=== PATIENT | male | born 1985 | race African-American/Black ===

== ENCOUNTER 2016-10-09 14:28 | Observation (INO) | payer SELFPAY ==
[~2016-10-09] VITALS: Ht 175.3 cm; Wt 92.0 kg
[2016-10-09 14:30] VITALS: BP 137/76; PULSE 68; RESP 16; TEMP 97.8; O2SAT 98
[2016-10-09] MEDS ORDERED: SODIUM CHLORIDE 0.9% FLUSH 10 ML FLUSH IV FLUSH PRN (17:15)
[2016-10-09] MEDS ORDERED: ONDANSETRON HCL 4 MG/2 ML VIAL IV ONE (17:30)
[2016-10-09] MEDS ORDERED: SODIUM CHLOR 0.9% 1000 ML INJ 1,000 ML IV ONE (17:30)
[2016-10-09 17:47] LABS: AUTOMATED NEUTROPHIL # 19.8 TH/MM3 (1.8-7.7); BASOPHIL # 0.1 TH/MM3 (0-0.2); BASOPHIL % 0.3 % (0.0-2.0); EOSINOPHIL % 0.1 % (0.0-4.0); HEMATOCRIT 46.2 % (39.0-51.0); HEMO FLAGS DIFF FINAL; LYMPH % 4.6 % (9.0-44.0); MEAN CORPUSCULAR HEMOGLOBIN 29.8 PG (27.0-34.0); MEAN CORPUSCULAR HGB CONC 34.7 % (32.0-36.0); MONO % 3.6 % (0.0-8.0); NEUT % 91.4 % (16.0-70.0); PLATELET COUNT 243 TH/MM3 (150-450); RED BLOOD COUNT 5.37 MIL/MM3 (4.50-5.90); RED CELL DISTRIBUTION WIDTH 13.1 % (11.6-17.2); WHITE BLOOD COUNT 21.6 TH/MM3 (4.0-11.0)
--- NOTE | 2016-10-09 18:09 | PD ---
HPI Chief Complaint: Abdominal Pain Time Seen by Provider: 17:08 Travel History International Travel<30 days: No Contact w/Intl Traveler<30days: No Traveled to known affect area: No History of Present Illness HPI Is a 31-year-old man who presents to the emergency department complaining of right lower quadrant abdominal pain that started this morning. He's had some associated nausea and vomiting with this as well. Is also had chills. He states that 3-4 days ago he had a significant sore throat with difficulty swallowing. This resolved prior to the onset of this abdominal pain. No urinary symptoms. No history of abdominal surgery. Review of systems is positive for some loose stools this morning. No other complaints. History Past Medical History Medical History: Denies Significant Hx Social History Alcohol Use: Yes (on occasion) Tobacco Use: No Allergies-Medications (Allergen,Severity, Reaction): Coded Allergies: No Known Allergies (Verified , 12/29/13) Reported Meds & Prescriptions Reported Meds & Active Scripts Active No Active Prescriptions or Reported Medications Review of Systems Except as stated in HPI: all other systems reviewed are Neg Physical Exam Narrative GENERAL: Well-appearing 31-year-old man, no acute distress. SKIN: Focused skin assessment warm/dry. CARDIOVASCULAR: Regular rate and rhythm. No murmur appreciated. RESPIRATORY: No accessory muscle use. Clear to auscultation. Breath sounds equal bilaterally. GASTROINTESTINAL: Abdomen is flat and soft, moderate right lower quadrant tenderness to palpation. : Normal male genitalia. No palpable hernias. No testicular tenderness. MUSCULOSKELETAL: No obvious deformities. No clubbing. No cyanosis. No edema. NEUROLOGICAL: Awake and alert. No obvious cranial nerve deficits. Motor grossly within normal limits. Normal speech. PSYCHIATRIC: Appropriate mood and affect; insight and judgment normal. Data Data Last Documented VS Vital Signs Date Time Temp Pulse Resp B/P Pulse Ox O2 Delivery O2 Flow Rate FiO2 10/09/16 17:29 18 10/09/16 14:30 97.8 68 137/76 98 Orders Complete Blood Count With Diff (10/09/16 17:08) Comprehensive Metabolic Panel (10/09/16 17:08) Lipase (10/09/16 17:08) Urinalysis - C+S If Indicated (10/09/16 17:08) Iv Access Insert/Monitor (10/09/16 17:08) NPO (10/09/16 17:08) Sodium Chloride 0.9% Flush (Ns Flush) (10/09/16 17:15) Sodium Chlor 0.9% 1000 Ml Inj (Ns 1000 M (10/09/16 17:30) Ondansetron Inj (Zofran Inj) (10/09/16 17:30) Ct Abd/Pel W Iv Contrast(Rout) (10/09/16 ) Labs Laboratory Tests Test 10/09/16 17:36 White Blood Count 21.6 TH/MM3 Red Blood Count 5.37 MIL/MM3 Hemoglobin 16.0 GM/DL Hematocrit 46.2 % Mean Corpuscular Volume 86.0 FL Mean Corpuscular Hemoglobin 29.8 PG Mean Corpuscular Hemoglobin 34.7 % Concent Red Cell Distribution Width 13.1 % Platelet Count 243 TH/MM3 Mean Platelet Volume 9.0 FL Neutrophils (%) (Auto) 91.4 % Lymphocytes (%) (Auto) 4.6 % Monocytes (%) (Auto) 3.6 % Eosinophils (%) (Auto) 0.1 % Basophils (%) (Auto) 0.3 % Neutrophils # (Auto) 19.8 TH/MM3 Lymphocytes # (Auto) 1.0 TH/MM3 Monocytes # (Auto) 0.8 TH/MM3 Eosinophils # (Auto) 0.0 TH/MM3 Basophils # (Auto) 0.1 TH/MM3 CBC Comment DIFF FINAL Differential Comment MDM Medical Decision Making Medical Screen Exam Complete: Yes Emergency Medical Condition: Yes Differential Diagnosis Appendicitis, renal lithiasis, hernia, adenitis, other Narrative Course Medical decision making INITIAL: 31-year-old male presents emergency Department with right lower quadrant abdominal pain starting today, with moderate right lower quadrant tenderness suggestive of appendicitis. Renal lithiasis all symptoms likely. Of note patient had a sore throat recently which could've precipitated mesenteric adenitis will be related to strep infection. He otherwise looks well. We'll plan labs, CT, reassess. Scripts No Active Prescriptions or Reported Meds Elian Walker MD Oct 09, 2016 18:08
[2016-10-09 18:11] LABS: ANION GAP 8 MEQ/L (5-15); AST (GOT) 16 U/L (15-37); BICARBONATE 26.2 MEQ/L (21.0-32.0); BLOOD UREA NITROGEN 8 MG/DL (7-18); CHLORIDE 105 MEQ/L (98-107); GLOMERULAR FILTRATION RATE 104 ML/MIN (>89); POTASSIUM 4.4 MEQ/L (3.5-5.1); SODIUM (NA) 139 MEQ/L (136-145)
[2016-10-09 18:14] LABS: ALKALINE PHOSPHATASE 66 U/L (45-117); ALT (GPT) 25 U/L (12-78); TOTAL BILIRUBIN ADULT 0.9 MG/DL (0.2-1.0)
[2016-10-09] MEDS ORDERED: IOHEXOL 350 MG/ML 10 ML VIAL (for RAD DIAG) IV ONE (18:17)
--- NOTE | 2016-10-09 18:39 | RADRPT ---
EXAM DATE/TIME: 10/09/2016 18:08 [facility] COMPARISON: No previous studies available for comparison. INDICATIONS : Right lower quadrant abdominal pain with nausea and vomiting. IV CONTRAST: 100 cc Omnipaque 350 (iohexol) IV ORAL CONTRAST: No oral contrast ingested. RADIATION DOSE: 9.96 CTDIvol (mGy) MEDICAL HISTORY : None SURGICAL HISTORY : None. ENCOUNTER: Initial ACUITY: 2 days PAIN SCALE: 6/10 LOCATION: Right lower quadrant TECHNIQUE: Volumetric scanning of the abdomen and pelvis was performed. Using automated exposure control and ad justment of the mA and/or kV according to patient size, radiation dose was kept as low as reasonably achievable to obtain optimal diagnostic quality images. FINDINGS: LOWER LUNGS: The visualized lower lungs are clear. LIVER: Homogeneous density without lesion. There is no dilation of the biliary tree. No calcified gallston es. SPLEEN: Normal size without lesion. PANCREAS: Within normal limits. KIDNEYS: Normal in size and shape. There is no mass, stone or hydronephrosis. ADRENAL GLANDS: Within normal limits. VASCULAR: There is no aortic aneurysm. BOWEL/MESENTERY: The appendix is fluid-filled, minimally dilated and there is minimal periappendiceal inflammatory levon nge or suggesting early acute appendicitis. No appendiceal abscess is noted. Correlation with clinica l symptoms and white count is recommended. ABDOMINAL WALL: Within normal limits. RETROPERITONEUM: There is no lymphadenopathy. BLADDER: No wall thickening or mass. REPRODUCTIVE: Within normal limits. INGUINAL: There is no lymphadenopathy or hernia. MUSCULOSKELETAL: Within normal limits for patient age. CONCLUSION: Mildly dilated, fluid-filled, appendix with minimal periappendiceal inflammatory changes suggesting e jarvis acute appendicitis. No appendiceal abscess is noted. Correlation with clinical symptoms and whit e count are recommended. Russ Haider MD on October 09, 2016 at 18:34 Board Certified Radiologist. This report was verified electronically.
[2016-10-09 18:49] LABS: BLOOD, URINE NEG (NEG); COMMENT (UR) CULT NOT INDICATED; CULTURE IF INDICATED CULT NOT INDICATED; GLUCOSE,URINE NEG (NEG); KETONE, URINE 150 mg/dL (NEG); MUCUS URINE FEW /lpf (OCC); NITRITE,URINE NEG (NEG); URINE COLOR YELLOW (YELLW/STRAW)
[2016-10-09 20:00] VITALS: BP 130/70; PULSE 72; RESP 20; O2SAT 100
[2016-10-09] MEDS: LEVOFLOXACIN 750 MG PREMIX INJ 150 ML IV SCH (20:04)
--- NOTE | 2016-10-09 20:35 | MH ---
cc: JHONNY RODRIGUEZ DATE OF ADMISSION 10/09/2016 REASON FOR ADMISSION Acute abdominal pain, appendicitis. HISTORY OF PRESENT ILLNESS This is a pleasant 31-year-old gentleman who had just a 24-hour history of right lower quadrant pain going to the umbilicus. He came into the emergency room when it became unrelenting. Imaging and workup ensued. ER called me for surgical evaluation for surgical opinion, radiologic and physical exam findings. PAST MEDICAL HISTORY Negative for any chronic medical problems. He has never had a cardiovascular, GI complaints like this, no previous surgeries. SOCIAL HISTORY He drinks occasional alcohol. He works as a tree surgeon. ALLERGIES He is not allergic to anything. MEDICATIONS He does not take any medications. PHYSICAL EXAMINATION GENERAL: He is a robust healthy 31-year-old -[place] gentleman who is in mild distress. Pleasant and articulate. NECK: Supple. CHEST: Clear. HEART: Regular rate. ABDOMEN: Soft with exquisite tenderness right lower quadrant, positive McBurney's point. No hernias are appreciated. EXTREMITIES: Moves all four extremities well. No clubbing, cyanosis or edema. NEUROLOGIC: He is alert and oriented times three without focal deficits. Cranial nerves II-XII grossly intact. LABORATORY DATA White count showed 21,000, H&H is 16 and 46. Chemistry essentially normal. His urine is clear. IMAGING STUDIES Shows findings consistent with appendicitis. ASSESSMENT A 31-year-old gentleman who has classic signs and symptomatology on clinical examination with appendicitis confirmed with radiologic imaging. PLAN Continue nothing by mouth, IV fluids, preoperative antibiotics and operative intervention. I have already discussed with the operating room to proceed with urgent laparoscopic appendectomy. This was explained to the patient in detail who appeared to understand. MD ZAHRA Jc/ /8:24 PM /8:30 PM
--- NOTE | 2016-10-09 23:37 | HHI.PR ---
Objective Vitals/I&O Vital Signs Date Time Temp Pulse Resp B/P Pulse Ox O2 Delivery O2 Flow Rate FiO2 10/09/16 17:29 18 10/09/16 14:30 97.8 68 137/76 98 Labs Laboratory Tests Test 10/09/16 10/09/16 17:36 18:34 White Blood Count 21.6 Red Blood Count 5.37 Hemoglobin 16.0 Hematocrit 46.2 Mean Corpuscular Volume 86.0 Mean Corpuscular Hemoglobin 29.8 Mean Corpuscular Hemoglobin 34.7 Concent Red Cell Distribution Width 13.1 Platelet Count 243 Mean Platelet Volume 9.0 Neutrophils (%) (Auto) 91.4 Lymphocytes (%) (Auto) 4.6 Monocytes (%) (Auto) 3.6 Eosinophils (%) (Auto) 0.1 Basophils (%) (Auto) 0.3 Neutrophils # (Auto) 19.8 Lymphocytes # (Auto) 1.0 Monocytes # (Auto) 0.8 Eosinophils # (Auto) 0.0 Basophils # (Auto) 0.1 CBC Comment DIFF FINAL Differential Comment Sodium Level 139 Potassium Level 4.4 Chloride Level 105 Carbon Dioxide Level 26.2 Anion Gap 8 Blood Urea Nitrogen 8 Creatinine 1.02 Estimat Glomerular Filtration 104 Rate Random Glucose 93 Calcium Level 9.5 Total Bilirubin 0.9 Aspartate Amino Transf 16 (AST/SGOT) Alanine Aminotransferase 25 (ALT/SGPT) Alkaline Phosphatase 66 Total Protein 8.5 Albumin 4.3 Lipase 304 Urine Color YELLOW Urine Turbidity CLEAR Urine pH 6.0 Urine Specific [place] 1.036 Urine Protein TRACE Urine Glucose (UA) NEG Urine Ketones 150 Urine Occult Blood NEG Urine Nitrite NEG Urine Bilirubin NEG Urine Urobilinogen LESS THAN 2.0 Urine Leukocyte Esterase NEG Urine RBC 2 Urine WBC 1 Urine Mucus FEW Microscopic Urinalysis Comment CULT NOT INDICATED Attending Statement Patient was scheduled for 8 PM appendectomy Unfortunately numerous delays in the OR for 4 hours prevented the patient from proceeding with planned procedure Surgery was scheduled 8 AM in the morning Dajuan Mondragon MD Oct 09, 2016 23:37
[2016-10-10] VITALS (7 sets, daily range): BP systolic 118–132; BP diastolic 64–80; PULSE 68–89; RESP 16–20; TEMP 95.8–98.8; O2SAT 96–99
[2016-10-10] MEDS: metroNIDAZOLE 500 MG INJ 100 ML IV SCH ×5 (01:14→23:40)
[2016-10-10] MEDS ORDERED: PCA - TOTAL MG DILAUDID DELIVERED PER SHIFT IV SCH (06:00)
[2016-10-10] MEDS ORDERED: NEOSTIGMINE 3 MG/3 ML SYR IV ONE (11:33)
[2016-10-10] MEDS ORDERED: PHENYLEPH/NS 1000 MCG/10 ML SYR IV ONE (11:33)
[2016-10-10] MEDS ORDERED: PROPOFOL 200 MG/20 ML AMP IV ONE (11:33)
[2016-10-10] MEDS ORDERED: ONDANSETRON HCL 4 MG/2 ML VIAL IV PUSH ONE (11:34)
[2016-10-10] MEDS ORDERED: fentaNYL CITRATE 250 MCG/5 ML AMP ONE (12:33)
[2016-10-10] MEDS ORDERED: ACETAMINOPHEN 1000 MG/100 ML VIAL IV ONE (13:00)
[2016-10-10] MEDS ORDERED: MIDAZOLAM HCL 2 MG/2 ML VIAL ONE (13:01)
[2016-10-10] MEDS ORDERED: FAMOTIDINE 20 MG/2 ML VIAL ONE (13:01)
[2016-10-10] MEDS: LEVOFLOXACIN 750 MG PREMIX INJ 150 ML IV SCH ×2 (13:36→20:30)
[2016-10-10] MEDS ORDERED: BUPIVACAINE/EPINEPHRINE 0.5% PF 30 ML VIAL INFIL ONE (13:41)
[2016-10-10] MEDS ORDERED: NORC5TAB PO (14:21)
[2016-10-10] MEDS ORDERED: DO NOT ADM ANY ANTICOAGULANT DRUGS PRN (14:26)
[2016-10-10] MEDS ORDERED: MORPHINE SULFATE 4 MG/ML INJ ONE (14:27)
[2016-10-10] MEDS ORDERED: Post-op Orders (for Pharmacy) MISC XX ONE (14:30)
[2016-10-10] MEDS ORDERED: ACETAMINOPHEN/HYDROcodone 325 MG/5 MG TAB PO PRN ×2 (14:30)
[2016-10-10] MEDS ORDERED: ACETAMINOPHEN 325 MG TAB PO PRN (14:30)
[2016-10-10] MEDS ORDERED: METOCLOPRAMIDE HCL 10 MG/2 ML VIAL IVS PRN (14:30)
[2016-10-10] MEDS: ONDANSETRON HCL 4 MG/2 ML VIAL IV PRN ×3 (14:46→23:41)
[2016-10-11] MEDS: metroNIDAZOLE 500 MG INJ 100 ML IV SCH ×2 (05:48→12:27)
[2016-10-11 08:00] VITALS: BP 119/72; PULSE 67; RESP 17; TEMP 97.9; O2SAT 98
--- NOTE | 2016-10-11 13:52 | HHI.PR ---
Subjective Subjective Notes DAILY PROGRESS NOTE FOR SURGICAL ATTENDING, DR. JHONNY MONDRAGON C/o shoulder pain Nauseous overnight Objective Vitals/I&O Vital Signs Date Time Temp Pulse Resp B/P Pulse Ox O2 Delivery O2 Flow Rate FiO2 10/11/16 08:00 97.9 67 17 119/72 98 10/10/16 15:15 Room Air 10/10/16 14:26 2 Labs Laboratory Tests Test 10/09/16 10/09/16 17:36 18:34 White Blood Count 21.6 TH/MM3 Red Blood Count 5.37 MIL/MM3 Hemoglobin 16.0 GM/DL Hematocrit 46.2 % Mean Corpuscular Volume 86.0 FL Mean Corpuscular Hemoglobin 29.8 PG Mean Corpuscular Hemoglobin 34.7 % Concent Red Cell Distribution Width 13.1 % Platelet Count 243 TH/MM3 Mean Platelet Volume 9.0 FL Neutrophils (%) (Auto) 91.4 % Lymphocytes (%) (Auto) 4.6 % Monocytes (%) (Auto) 3.6 % Eosinophils (%) (Auto) 0.1 % Basophils (%) (Auto) 0.3 % Neutrophils # (Auto) 19.8 TH/MM3 Lymphocytes # (Auto) 1.0 TH/MM3 Monocytes # (Auto) 0.8 TH/MM3 Eosinophils # (Auto) 0.0 TH/MM3 Basophils # (Auto) 0.1 TH/MM3 CBC Comment DIFF FINAL Differential Comment Sodium Level 139 MEQ/L Potassium Level 4.4 MEQ/L Chloride Level 105 MEQ/L Carbon Dioxide Level 26.2 MEQ/L Anion Gap 8 MEQ/L Blood Urea Nitrogen 8 MG/DL Creatinine 1.02 MG/DL Estimat Glomerular Filtration 104 ML/MIN Rate Random Glucose 93 MG/DL Calcium Level 9.5 MG/DL Total Bilirubin 0.9 MG/DL Aspartate Amino Transf 16 U/L (AST/SGOT) Alanine Aminotransferase 25 U/L (ALT/SGPT) Alkaline Phosphatase 66 U/L Total Protein 8.5 GM/DL Albumin 4.3 GM/DL Lipase 304 U/L Urine Color YELLOW Urine Turbidity CLEAR Urine pH 6.0 Urine Specific [place] 1.036 Urine Protein TRACE mg/dL Urine Glucose (UA) NEG mg/dL Urine Ketones 150 mg/dL Urine Occult Blood NEG Urine Nitrite NEG Urine Bilirubin NEG Urine Urobilinogen LESS THAN 2.0 MG/DL Urine Leukocyte Esterase NEG Urine RBC 2 /hpf Urine WBC 1 /hpf Urine Mucus FEW /lpf Microscopic Urinalysis Comment CULT NOT INDICATED Cardiovascular: Regular Lungs: Clear Abdomen: Other (lap sites c/d/i ) Extremities: No edema A/P Problem List: (1) PONV (postoperative nausea and vomiting) (2) S/P laparoscopic appendectomy (3) Appendicitis, acute, with peritonitis (4) Abdominal pain, right lower quadrant (5) Elevated white blood cell count (6) Abnormal CT of the abdomen Assessment and Plan 31 year old male POD1 lap appy -Not tolerating much by mouth---encouraged bland diet as tolerated -Check CBC -OOB and mobilize -Pain control Attending Statement NOTE FOR SURGICAL ATTENDING, DR. JHONNY MONDRAGON I agree with above assessment and plan. The exam, history, and the medical decision-making described in the above note were completed with the assistance of the mid-level provider. I reviewed and agree with the findings presented. Discussed intraoperative findings with the patient He is up ambulating the bloom Had some nausea he associated with the anesthetic in the postop period that postponed his discharge Abdominal discomfort better Having some gas pain in the right shoulder We'll check a CBC Stop Flagyl Continue Levaquin Possible discharge today or tomorrow depending on clinical condition I attest that I had a [id number] encounter with the patient on the same day, and personally performed and documented my assessment and findings in the medical record. The following services were provided during this hospital visit: Chart data review, vital sign assessments/reviewing monitor data Review of consultations notes if present. Medication orders/review and/or management Ordering and/or reviewing lab tests Ordering and/or interpreting/reviewing x-rays and/or diagnostic studies Care of the patient and discussion of the patient with the care team Documentation time To help prompt me to consider important information that might be impacting today's encounter and assessment, information from prior notes written by myself or my colleagues may have been "brought forward/copy and pasted" into today's note. Problem Qualifiers (1) Elevated white blood cell count: Qualified Code: D72.825 - Bandemia Nakita Jamil Oct 11, 2016 13:52 Jhonny Mondragon MD Oct 11, 2016 14:13
[2016-10-11 14:41] LABS: AUTOMATED NEUTROPHIL # 12.2 TH/MM3 (1.8-7.7); BASOPHIL # 0.1 TH/MM3 (0-0.2); BASOPHIL % 0.8 % (0.0-2.0); EOSINOPHIL % 0.1 % (0.0-4.0); HEMATOCRIT 42.5 % (39.0-51.0); HEMO FLAGS DIFF FINAL; LYMPH % 10.6 % (9.0-44.0); LYMPHOCYTE # 1.6 TH/MM3 (1.0-4.8); MEAN CELL VOLUME 86.1 FL (80.0-100.0); MEAN CORPUSCULAR HEMOGLOBIN 29.9 PG (27.0-34.0); MEAN CORPUSCULAR HGB CONC 34.7 % (32.0-36.0); MONO % 7.6 % (0.0-8.0); NEUT % 80.9 % (16.0-70.0); PLATELET COUNT 233 TH/MM3 (150-450); RED BLOOD COUNT 4.93 MIL/MM3 (4.50-5.90); RED CELL DISTRIBUTION WIDTH 13.4 % (11.6-17.2)
[2016-10-11 16:00] VITALS: BP 151/82; PULSE 56; RESP 17; TEMP 98.3; O2SAT 98
[2016-10-11 20:00] VITALS: BP 126/71; PULSE 58; RESP 17; TEMP 98.7; O2SAT 100
[2016-10-11] MEDS: LEVOFLOXACIN 750 MG PREMIX INJ 150 ML IV SCH (21:15)
[2016-10-12] VITALS: BP 122/77; PULSE 60; RESP 17; TEMP 99.2; O2SAT 98
[2016-10-12 08:00] VITALS: BP 134/81; PULSE 66; RESP 12; TEMP 96.9; O2SAT 98
--- NOTE | 2016-10-13 17:44 | MP ---
cc: JHONNY MONDRAGON Corrected Copy: 10/23/16 DATE OF PROCEDURE 10/10/2016 PREOPERATIVE DIAGNOSES Acute appendicitis. POSTOPERATIVE DIAGNOSIS Acute appendicitis. PROCEDURE Laparoscopic appendectomy. ANESTHESIA General. SURGEON Dr. Mondragon INDICATIONS The patient is a pleasant 31-year-old gentleman who was admitted to the hospital yesterday, attempts were made to proceed with appendectomy last night and unfortunately OR delays prevent it and plans were made to take the patient the next day when the OR time could be found. PROCEDURE IN DETAIL The patient was taken to the operating room, placed in supine position. After anesthesia his abdomen was prepped with Betadine. He is given preoperative antibiotics. Time-out we done. We made an incision just above the umbilicus, dissect down the fascia. A Veress needle was inserted. The saline load test was performed. The abdomen was insufflated up to 15 mmHg. 10 mm trocar was introduced. Two other working ports were placed, a 5 mm above the pubic tubercle, above the symphysis of the pubis, avoiding bladder and the third working port in the midline between the two previously placed ports. The appendix can be seen. It is obviously inflamed without evidence of perforation or rupture. There is some cloudy fluid which is irrigated out. We are able to grasp the mesentery, the appendix taken down with the harmonic scalpel, dissect around to the base of the appendix, 2 Endoties PDS are then placed and the appendix is amputated and retrieved through the umbilical port with the EndoCatch bag. This is passed off the field. Then irrigate copiously down the pelvis where the cloudy fluid is removed. Irrigating solution, CO2 is removed. The trocars were then removed. The fascial layer at the umbilicus closed with 0 Vicryl. Skin is closed with 4-0 Vicryl at all three sites. Sterile bandage applied. The patient tolerated the procedure well and returned to recovery room with no immediate postop complications. Jhonny Mondragon MD JDB/EO /2:26 PM /2:34 PM
--- NOTE | 2016-10-30 14:10 | HHI.DS ---
Discharge Summary Admission Date Oct 09, 2016 at 19:16 Discharge Date: Oct 12, 2016 Admitting Diagnosis acute appendicitis (1) PONV (postoperative nausea and vomiting) Diagnosis: Secondary (2) S/P laparoscopic appendectomy Diagnosis: Principal (3) Appendicitis, acute, with peritonitis Diagnosis: Principal (4) Abdominal pain, right lower quadrant Diagnosis: Principal (5) Elevated white blood cell count Diagnosis: Principal (6) Abnormal CT of the abdomen Brief History 31 year old male POD1 lap appy PE at Discharge Alert and awake Cardio: RRR Resp: CTAB Abd: lap sites c/d/i; post op tenderness Hospital Course This is a 31 year old male POD1 lap appy. Post-operatively the patient had some nausea. He eventually was able to tolerate a regular diet. His pain was controlled using oral pain medications. He will follow up in the office in about 10 days. Pt Condition on Discharge: Good Discharge Disposition: Discharge Home Discharge Instructions DIET: Follow Instructions for: As Tolerated, No Restrictions Activities you can perform: See Additionl Instruction Follow up Referrals: Surgical - 1 Week with Dajuan Mondragon MD New Medications: Hydrocodone-Acetaminophen ([place]) 5-325 mg Tab 1 TAB PO Q6H PRN PAIN #30 Ref 0 TAB Nakita Jamil Oct 30, 2016 14:10 Dajuan Mondragon MD Oct 30, 2016 14:16
== END 2016-10-12 11:46 | disposition home or self-care (01) ==
LOC: NEPC 14:28 → NEDA 19:16 → N07A 10-10 00:34
PROVIDERS: ADMIT Surgery; ATTEND Surgery
DX: K35.3 Acute appendicitis with localized peritonitis (principal)
CPT/HCPCS: 00840; 44970; 74177; 80053; 81001; 83690; 85025; 88304; 94150; 96374; 99285; G0378; J0131; J1956; J2250; J2270; J2370; J2405; J2710; J3010; J7030; Q9967

== ENCOUNTER 2017-01-23 13:52 | Emergency (ER) | payer SELFPAY ==
[~2017-01-23] VITALS: Ht 175.3 cm; Wt 99.0 kg
[~2017-01-23 13:52] MED LIST: NORC5TAB PO
[2017-01-23 13:54] VITALS: BP 135/90; PULSE 75; RESP 16; TEMP 98.5; O2SAT 100
--- NOTE | 2017-01-23 14:43 | PD ---
HPI Chief Complaint: Cold / Flu Symptoms Time Seen by Provider: 14:43 Travel History International Travel<30 days: No Contact w/Intl Traveler<30days: No Traveled to known affect area: No History of Present Illness HPI 31-year-old Afro-[place] male presents the emergency department with several day history of worsening throat and tonsil pain and swelling. Patient denies specific fever, ear pain, cough, sinus headache, or postnasal drip. He denies cough or nausea vomiting or diarrhea. Patient states he noted some "blisters on the left tonsil this morning". Patient has difficulty eating secondary to pain. Pain is 7 out of 10. He is not having difficulty swallowing however. He has no exposure to illness that he knows of. He has no allergies. He has no known drug allergies. PFSH Past Medical History Cardiovascular Problems: No Cerebrovascular Accident: No Diabetes: No Endocrine: No Genitourinary: No Musculoskeletal: No Neurologic: No Reproductive: No Respiratory: No Myocardial Infarction: No Social History Alcohol Use: Yes (on occasion) Tobacco Use: No Substance Use: Yes (thc daily) Allergies-Medications (Allergen,Severity, Reaction): Coded Allergies: No Known Allergies (Verified , 01/23/17) Reported Meds & Prescriptions Reported Meds & Active Scripts Active Amoxicillin 875 Mg Tab 875 Mg PO BID [place] (Hydrocodone-Acetaminophen) 5-325 mg Tab 1 Tab PO Q6H PRN Review of Systems Except as stated in HPI: all other systems reviewed are Neg General / Constitutional: No: Fever, Chills Eyes: No: Visual changes HENT: Positive: Sore Throat, Congestion, No: Headaches, Vertigo, Lightheadedness, Rhinitis, Rhinorrhea, Neck Stiffness, Neck Pain, Gingival Bleeding, Dental Difficulties, Ear Discharge, Earache Cardiovascular: No: Chest Pain or Discomfort Respiratory: No: Shortness of Breath Gastrointestinal: No: Abdominal Pain Genitourinary: No: Dysuria Musculoskeletal: No: Pain Skin: No Rash Neurologic: No: Weakness Psychiatric: No: Depression Endocrine: No: Polydipsia Hematologic/Lymphatic: No: Easy Bruising Physical Exam Narrative GENERAL: Patient appears in acute distress. SKIN: Warm and dry. Normal color. Normal turgor. HEAD: Atraumatic. Normocephalic. EYES: Pupils equal and round. No scleral icterus. No injection or drainage. ENT: No nasal bleeding or discharge. Mucous membranes pink and moist. TMs are clear bilaterally. No sinus tenderness to palpation. Pharynx shows bilateral tonsillar swelling, injection, and exudate consistent with strep. Uvula is midline. Airway is patent. NECK: Trachea midline. Supple, with mildly tender anterior adenopathy. CARDIOVASCULAR: Regular rate and rhythm. RESPIRATORY: No accessory muscle use. Clear to auscultation. Breath sounds equal bilaterally. MUSCULOSKELETAL: Extremities without clubbing, cyanosis, or edema. No obvious deformities. NEUROLOGICAL: Awake and alert. No obvious cranial nerve deficits. Motor grossly within normal limits. Five out of 5 muscle strength in the arms and legs. Normal speech. PSYCHIATRIC: Appropriate mood and affect; insight and judgment normal. Data Data Last Documented VS Vital Signs Date Time Temp Pulse Resp B/P Pulse Ox O2 Delivery O2 Flow Rate FiO2 01/23/17 13:54 98.5 75 16 135/90 100 Room Air MDM Medical Decision Making Medical Screen Exam Complete: Yes Emergency Medical Condition: Yes Differential Diagnosis Pharyngitis. Tonsillitis. Strep throat. Narrative Course Patient treated for presumed strep pharyngitis. Patient given amoxicillin 875 twice a day 10 days. Patient can use [id number] ibuprofen and Tylenol and salt water gargles as well as ice chips as discussed. Patient follow up with symptoms do not improve or worsen as discussed. Diagnosis Primary Impression: Tonsillitis with exudate Referrals: [facility] Patient Instructions: General Instructions, Tonsillitis (ED) Additional Instructions: Patient treated for presumed strep pharyngitis. Patient given amoxicillin 875 twice a day 10 days. Patient can use [id number] ibuprofen and Tylenol and salt water gargles as well as ice chips as discussed. Patient follow up with symptoms do not improve or worsen as discussed. Med/Other Pt SpecificInfo: Prescription(s) given Scripts Amoxicillin 875 Mg Gax621 Mg PO BID #20 TAB Prov:Isabel Goodwin MD 01/23/17 Disposition: 01 DISCHARGE HOME Condition: Stable Juvencio Wilkerson Jan 23, 2017 14:43
[2017-01-23] MEDS ORDERED: AMOX875T PO (14:48)
== END 2017-01-23 15:15 | disposition home or self-care (01) ==
LOC: NEPK 13:52
DX: J03.90 Acute tonsillitis, unspecified (principal); Z79.899 Other long term (current) drug therapy
CPT/HCPCS: 99283